=== PATIENT | female | born 1990 | race Caucasian/White ===

== ENCOUNTER 2016-10-28 11:31 | Emergency (ER) | payer OTHER ==
[2016-10-28 11:39] VITALS: TEMP 98.4
[2016-10-28] MEDS ORDERED: NS 1,000 ML IV ONE ×2 (11:56→12:39)
[2016-10-28] MEDS ORDERED: ONDANSETRON 4 MG/2 ML VIAL IVP ONE ×2 (11:59→13:36)
--- NOTE | 2016-10-28 12:25 | EDPHY ---
H & P Stated Complaint: hyperemisis preg 7 wks HPI/ROS: CHIEF COMPLAINT: Nausea and vomiting in HISTORY OF PRESENT ILLNESS: patient is approximately 7 weeks with 2 weeks of vomiting. She is with a last menstrual period of September 03, 2016. Her care is with [facility]. She did see the nurse hair weaver earlier today, who sent her here for IV fluid resuscitation. She has been vomiting solids and liquids over the past 2 weeks, worsening over the past 24-48 hours. Unable to keep any water down. No fevers or chills. No abdominal pain or pelvic pain. No vaginal bleeding or discharge. She was evaluated last week for a threatened miscarriage without any significant findings. No other associated complaints or modifying factors. REVIEW OF SYSTEMS: Ten systems reviewed and are negative unless otherwise noted in the HPI EXAMINATION General Appearance: Alert, no distress Head: normocephalic, atraumatic Eyes: Pupils equal and round, no conjunctival pallor or injection ENT, Mouth: Mucous membranes moist Neck: Normal inspection, supple, non-tender Respiratory: Lungs are clear to auscultation Cardiovascular: Regular rate and rhythm Gastrointestinal: Abdomen is soft and nontender . No rigidity. No tympany. Nonacute abdomen Back: non-tender, no bony abnormalities Neurological: A&O, nonfocal Skin: Warm and dry, no rash Extremities: Nontender, no pedal edema Psychiatric: Mood and affect normal DIFFERENTIAL DIAGNOSES: Including but not limited to hyperemesis gravidarum, nausea vomiting, dehydration, volume depletion MDM: nausea and vomiting in early without any pelvic pain or bleeding. She has no fever or chills. No respiratory complaints. No urinary complaints to speak of. We are providing IV fluid resuscitation will obtain laboratory studies including UA. 1:45 p.m. I have re-evaluated this patient. They remain hemodynamically stable and in no distress. No further complaints at this time. Labs are within normal limits. Mild demargination likely from the repeated vomiting. She is afebrile with no abdominal or pelvic pain. No active vomiting in the ER but she is still nauseated. We have provided 2 L IV fluid resuscitation and 4 mg Zofran. She requested 1 further Zofran, and we will give 25 mg of Phenergan IM and attempt a p.o. trial. 2:10 p.m. I have re-evaluated this patient. They remain hemodynamically stable and in no distress. No further complaints at this time. She is feeling better after 2 L IV fluid, 2 doses Zofran, and Phenergan. She would like to be discharged home. I do feel she is stable for this. She will be discharged home with Zofran at her request, and 2 forms of promethazine. She has an appointment on Wednesday with her OB physician that she will keep her return to the ER for return of her symptoms, inability intake by mouth over 12-24 hours, pelvic pain or vaginal bleeding. Discharged home in stable condition. SUPERVISION: Patient was evaluated in conjunction with the supervising physician. Please see their note for details. Source: Patient, Family Exam Limitations: No limitations - Personal History LMP (Females 10-55): Current Tetanus/Diphtheria Vaccine: Unsure Current Tetanus Diphtheria and Acellular Pertussis (TDAP): Unsure - Medical/Surgical History Hx Asthma: No Hx Chronic Respiratory Disease: No Hx Diabetes: No Hx Cardiac Disease: No Hx Renal Disease: No Hx Cirrhosis: No Hx Alcoholism: No Hx HIV/AIDS: No Hx Splenectomy or Spleen Trauma: No - Social History Smoking Status: Never smoked Constitutional: Initial Vital Signs Temperature (C) 98.4 F 10/28/16 11:37 Heart Rate 80 10/28/16 11:37 Respiratory Rate 16 10/28/16 11:37 Blood Pressure 108/66 10/28/16 11:37 O2 Sat (%) 98 10/28/16 11:37 O2 Delivery Mode Room Air Allergies/Adverse Reactions: hydromorphone HCl [From Dilaudid] Allergy (Verified 04/02/14 17:18) Anaphylaxis Home Medications: Medication Instructions Recorded Claritin 10 mg PO DAILY 04/02/14 1 tab PO DAILY 04/02/14 Probiotic 1 cap PO DAILY 04/02/14 Hydrocodone/APAP 5/325 [[place] 1 - 2 tab PO Q4 PRN #30 tab 04/06/14 5/325 (*)] Ibuprofen [Motrin (*)] 600 mg PO Q6 PRN #30 tab 04/06/14 Iron Polysacch/Iron Heme Polyp 28 mg PO DAILY #0 tab 04/06/14 [Bifera] Ondansetron Odt [Zofran Odt 4 mg 4 mg PO Q4 PRN #20 tab 04/06/14 (*)] Ondansetron Odt [Zofran Odt 4 mg 4 mg PO Q4 PRN #12 tab 10/28/16 (*)] Promethazine HCl 25 mg RC Q8 PRN #20 supp.rect 10/28/16 Promethazine HCl [Phenergan 25mg 25 mg PO Q8 PRN #20 tab 10/28/16 (*)] Medical Decision Making - Data Points Laboratory Results: Laboratory Results 10/28/16 11:45 10/28/16 11:45 10/28/16 11:45 WBC 11.76 H 10^3/uL (3.80-9.50) RBC 4.36 10^6/uL (4.18-5.33) Hgb 12.6 g/dL (12.6-16.3) Hct 36.7 L % (38.0-47.0) MCV 84.2 fL (81.5-99.8) MCH 28.9 pg (27.9-34.1) MCHC 34.3 g/dL (32.4-36.7) RDW 12.7 % (11.5-15.2) Plt Count 198 10^3/uL (150-400) MPV 10.6 fL (8.7-11.7) Neut % (Auto) 81.7 H % (39.3-74.2) Lymph % (Auto) 12.8 L % (15.0-45.0) [place] % (Auto) 4.8 % (4.5-13.0) Eos % (Auto) 0.1 L % (0.6-7.6) Baso % (Auto) 0.3 % (0.3-1.7) Nucleat RBC Rel Count 0.0 % (0.0-0.2) Absolute Neuts (auto) 9.62 H 10^3/uL (1.70-6.50) Absolute Lymphs (auto) 1.50 10^3/uL (1.00-3.00) Absolute Monos (auto) 0.56 10^3/uL (0.30-0.80) Absolute Eos (auto) 0.01 L 10^3/uL (0.03-0.40) Absolute Basos (auto) 0.03 10^3/uL (0.02-0.10) Absolute Nucleated RBC 0.00 10^3/uL (0-0.01) Immature Gran % 0.3 % (0.0-1.1) Immature Gran # 0.04 10^3/uL (0.00-0.10) Sodium 140 mEq/L (134-144) Potassium 3.9 mEq/L (3.5-5.2) Chloride 101 mEq/L (97-110) Carbon Dioxide 23 mEq/l (22-31) Anion Gap 16 mEq/L (8-16) BUN 9 mg/dL (7-23) Creatinine 0.6 mg/dL (0.6-1.0) Estimated GFR > 60 Glucose 103 H mg/dL (70-100) Calcium 9.5 mg/dL (8.5-10.4) Total Bilirubin 0.7 mg/dL (0.1-1.4) Conjugated Bilirubin 0.2 mg/dL (0.0-0.5) Unconjugated Bilirubin 0.5 mg/dL (0.0-1.1) AST 38 IU/L (14-46) ALT 115 H IU/L (9-52) Alkaline Phosphatase 62 IU/L (38-126) Total Protein 7.7 g/dL (6.3-8.2) Albumin 4.3 g/dL (3.5-5.0) Amylase 55 IU/L (30-110) Lipase 118.0 IU/L (23-300) Beta HCG, Quant 963571.00 H mIU/mL (0-4.83) Medications Given: Discontinued Medications Sodium Chloride (Ns) 1,000 mls @ 0 mls/hr IV ONCE ONE PRN Reason: Wide Open Stop: 10/28/16 11:57 Last Admin: 10/28/16 11:57 Dose: 1,000 mls Sodium Chloride (Ns) 1,000 mls @ 0 mls/hr IV ONCE ONE PRN Reason: Wide Open Stop: 10/28/16 12:40 Last Admin: 10/28/16 12:40 Dose: 1,000 mls Ondansetron HCl (Zofran) 4 mg IVP EDNOW ONE Stop: 10/28/16 12:00 Last Admin: 10/28/16 12:09 Dose: 4 mg Ondansetron HCl (Zofran) 4 mg IVP EDNOW ONE Stop: 10/28/16 13:37 Last Admin: 10/28/16 13:48 Dose: 4 mg Promethazine HCl (Phenergan Injection) 25 mg IM EDNOW ONE Stop: 10/28/16 13:45 Last Admin: 10/28/16 14:08 Dose: 25 mg Departure - Departure Disposition: Home, Routine, Self-Care Clinical Impression: Hyperemesis gravidarum Qualifiers: Qualifier Code: (Z3A.01) Less than 8 weeks gestation of Condition: Good Instructions: Nausea and Vomiting in (ED) Additional Instructions: Follow up with OB physician on her regularly scheduled appointment on Wednesday. Return to the ER for worsening nausea or vomiting, inability to keep anything down for 12-24 hours, any pelvic pain or vaginal bleeding. Referrals: NONE *PRIMARY CARE P,. [Primary Care Provider] - As per Instructions Anjelica Fowler MD [Medical Doctor] - As per Instructions Prescriptions: Promethazine HCl [Phenergan 25mg (*)] 25 mg PO Q8 PRN #20 tab PRN Reason: Nausea/Vomiting, Use 1st Promethazine HCl 25 mg RC Q8 PRN #20 supp.rect PRN Reason: Nausea/Vomiting, Use 2nd Ondansetron Odt [Zofran Odt 4 mg (*)] 4 mg PO Q4 PRN #12 tab PRN Reason: Nausea/Vomiting, Use 1st
[2016-10-28 12:30] LABS: % IMMATURE GRANULYOCYTES 0.3 % (0.0-1.1); ABSOLUTE IMMATURE GRANULOCYTES 0.04 10^3/uL (0.00-0.10); ADD DIFF? NO; ADD MORPH? NO; ADD SCAN? NO; ATYPICAL LYMPHOCYTE FLAG 0 (0-99); FRAGMENT RBC FLAG 0 (0-99); HEMATOCRIT 36.7 % (38.0-47.0); HEMOGLOBIN 12.6 g/dL (12.6-16.3); LEFT SHIFT FLG 0 (0-99); LIPEMIA HEMOLYSIS FLAG 90 (0-99); MEAN CELL HEMOGLOBIN 28.9 pg (27.9-34.1); MEAN CELL HEMOGLOBIN CONCENTR. 34.3 g/dL (32.4-36.7); MEAN CELL VOLUME 84.2 fL (81.5-99.8); MEAN PLATELET VOLUME 10.6 fL (8.7-11.7); PLATELET CLUMPS FLAG 0 (0-99); PLATELET COUNT 198 10^3/uL (150-400); RED BLOOD CELL COUNT 4.36 10^6/uL (4.18-5.33); RED CELL DISTRIBUTION WIDTH 12.7 % (11.5-15.2)
[2016-10-28 12:57] LABS: ALANINE AMINOTRANSFERASE 115 IU/L (9-52); ALBUMIN 4.3 g/dL (3.5-5.0); ALKALINE PHOSPHATASE 62 IU/L (38-126); AMYLASE 55 IU/L (30-110); ANION GAP 16 mEq/L (8-16); ASPARTATE AMINOTRANSFERASE 38 IU/L (14-46); BILIRUBIN,TOTAL 0.7 mg/dL (0.1-1.4); BILIRUBIN-CONJUGATED 0.2 mg/dL (0.0-0.5); BILIRUBIN-UNCONJUGATED 0.5 mg/dL (0.0-1.1); CALCIUM 9.5 mg/dL (8.5-10.4); CARBON DIOXIDE 23 mEq/l (22-31); CHLORIDE 101 mEq/L (97-110); CREATININE 0.6 mg/dL (0.6-1.0); GLOMERULAR FILTRATION RATE > 60; GLUCOSE 103 mg/dL (70-100); POTASSIUM 3.9 mEq/L (3.5-5.2); SODIUM 140 mEq/L (134-144); TOTAL PROTEIN 7.7 g/dL (6.3-8.2)
[2016-10-28] MEDS ORDERED: PROMETHAZINE HCL 25 MG/ML INJ IM ONE (13:44)
[2016-10-28 14:46] VITALS: BP 122/78; PULSE 80; RESP 14; O2SAT 94
== END 2016-10-28 14:45 | disposition home or self-care (01) ==
DX: O21.0 Mild hyperemesis gravidarum (principal); Z3A.01 Less than 8 weeks gestation of pregnancy
CPT/HCPCS: 96374; J2405; J2550

== ENCOUNTER 2016-10-30 10:50 | Observation (INO) | payer OTHER ==
[2016-10-30] MEDS ORDERED: NS 1,000 ML IV ONE ×2 (11:15→12:18)
[2016-10-30] MEDS ORDERED: PROMETHAZINE HCL 25 MG/ML INJ IVP ONE (11:28)
--- NOTE | 2016-10-30 12:18 | EDPHY ---
H & P Stated Complaint: hyperemesis /7 wks Time Seen by Provider: 10/30/16 12:14 HPI/ROS: CHIEF COMPLAINT: Nausea vomiting HISTORY OF PRESENT ILLNESS: 26-year-old female currently 7 weeks complaining of 2 and half weeks of vomiting. She was seen in the ER 2 days ago for same complaint, treated and released after IV hydration, Zofran and prescription for Phenergan. She returns to the ER noting that she has continued nausea, vomiting with concurrent anti emetic use. She notes mild epigastric discomfort which she feels is likely secondary to retching and vomiting. However no lower abdominal pain, no abdominal cramping, no vaginal bleeding or discharge. no fever no chills. No urinary complaints. Possible constipation. No melena or hematochezia. No back or flank pain. No myalgias no flu-like symptoms. PRIMARY OBGYN Corrie Salcedo REVIEW OF SYSTEMS: female A ten point review of systems was performed and is negative with the exception of the items mentioned in the HPI PAST MEDICAL & SURGICAL HISTORY: currently 7 weeks SOCIAL HISTORY: nonsmoker PHYSICAL EXAM (Prior to examination, patient consented to physical exam, hands were washed and my usual and customary physical exam procedures followed) 1) GENERAL: Well-developed, well-nourished, alert and oriented. Appears to be in no acute distress. 2) HEAD: Normocephalic, atraumatic 3) HEENT: Pupils equal, round, reactive to light bilaterally. Sclera anicteric. Nasopharynx, oropharynx, clear, no lesions. Dry mucous membranes 4) NECK: Full range of motion, no meningeal signs. 5) LUNGS: Clear auscultation bilaterally, no wheezes, no rhonchi, no retractions. 6) HEART: Regular rate and rhythm, no murmur, no heave, no gallop. 7) ABDOMEN: mild tenderness to palpation epigastrium only, no rebound, negative McBurney's, negative Dave's, negative Rovsing's, negative peritoneal sign, unable to elicit any lower abdominal pain 8) MUSCULOSKELETAL: Moving all extremities, no focal areas of tenderness, no obvious trauma. No peripheral edema or discoloration. 9) BACK: No CVA tenderness, no midline vertebral tenderness, no fluctuance, no step-off, no obvious trauma, no visual or palpable abnormality. 10) SKIN: No rash, no petechiae. DIFFERENTIAL DIAGNOSIS: in no particular include but limited to appendicitis, ectopic , acute cholecystitis, hyperemesis gravidarum - Personal History LMP (Females 10-55): Current Tetanus/Diphtheria Vaccine: Yes - Medical/Surgical History Hx Asthma: No Hx Chronic Respiratory Disease: No Hx Diabetes: No Hx Cardiac Disease: No Hx Renal Disease: No Hx Cirrhosis: No Hx Alcoholism: No Hx HIV/AIDS: No Hx Splenectomy or Spleen Trauma: No Other PMH: denies - Social History Smoking Status: Never smoked Constitutional: Initial Vital Signs Temperature (C) 36.7 C 10/30/16 11:01 Heart Rate 77 10/30/16 11:01 Respiratory Rate 22 H 10/30/16 11:01 Blood Pressure 115/67 10/30/16 11:01 O2 Sat (%) 99 10/30/16 11:01 O2 Delivery Mode Room Air Allergies/Adverse Reactions: hydromorphone HCl [From Dilaudid] Allergy (Verified 10/30/16 11:00) Anaphylaxis Home Medications: Medication Instructions Recorded 1 tab PO DAILY 04/02/14 Probiotic 1 cap PO DAILY 04/02/14 Ibuprofen [Motrin (*)] 600 mg PO Q6 PRN #30 tab 04/06/14 Iron Polysacch/Iron Heme Polyp 28 mg PO DAILY #0 tab 04/06/14 [Bifera] Ondansetron Odt [Zofran Odt 4 mg 4 mg PO Q4 PRN #20 tab 04/06/14 (*)] Ondansetron Odt [Zofran Odt 4 mg 4 mg PO Q4 PRN #12 tab 10/28/16 (*)] Promethazine HCl 25 mg RC Q8 PRN #20 supp.rect 10/28/16 Promethazine HCl [Phenergan 25mg 25 mg PO Q8 PRN #20 tab 10/28/16 (*)] Medical Decision Making ED Course/Re-evaluation: 12:45 p.m.: This patient has no complaints of abdominal pain or cramping. She has mild tenderness to palpation epigastrium only. No lower abdominal pain. No vaginal bleeding or discharge. Afebrile. I reviewed her old medical records. This patient has intractable nausea and vomiting. Think she would benefit from admission and hydration and antiemetic therapy. Discussed case Dr. Renzo Clark in ER. 12:50 p.m.: Phone consultation with PA with Dr. Corrie Salcedo the patient's OBGYN agrees to admit the patient to mom/Baby Floor. - Data Points Laboratory Results: Laboratory Results 10/30/16 11:15 10/30/16 11:15 WBC 9.37 10^3/uL (3.80-9.50) RBC 4.49 10^6/uL (4.18-5.33) Hgb 13.2 g/dL (12.6-16.3) Hct 38.9 % (38.0-47.0) MCV 86.6 fL (81.5-99.8) MCH 29.4 pg (27.9-34.1) MCHC 33.9 g/dL (32.4-36.7) RDW 12.9 % (11.5-15.2) Plt Count 220 10^3/uL (150-400) MPV 11.1 fL (8.7-11.7) Neut % (Auto) 79.7 H % (39.3-74.2) Lymph % (Auto) 15.6 % (15.0-45.0) [place] % (Auto) 3.7 L % (4.5-13.0) Eos % (Auto) 0.1 L % (0.6-7.6) Baso % (Auto) 0.4 % (0.3-1.7) Nucleat RBC Rel Count 0.0 % (0.0-0.2) Absolute Neuts (auto) 7.46 H 10^3/uL (1.70-6.50) Absolute Lymphs (auto) 1.46 10^3/uL (1.00-3.00) Absolute Monos (auto) 0.35 10^3/uL (0.30-0.80) Absolute Eos (auto) 0.01 L 10^3/uL (0.03-0.40) Absolute Basos (auto) 0.04 10^3/uL (0.02-0.10) Absolute Nucleated RBC 0.00 10^3/uL (0-0.01) Immature Gran % 0.5 % (0.0-1.1) Immature Gran # 0.05 10^3/uL (0.00-0.10) Sodium Pending Potassium Pending Chloride Pending Carbon Dioxide Pending Anion Gap Pending BUN Pending Creatinine Pending Estimated GFR Pending Glucose Pending Calcium Pending Total Bilirubin Pending Conjugated Bilirubin Pending Unconjugated Bilirubin Pending AST Pending ALT Pending Alkaline Phosphatase Pending Total Protein Pending Albumin Pending Lipase Pending Beta HCG, Quant Pending Medications Given: Discontinued Medications Sodium Chloride (Ns) 1,000 mls @ 0 mls/hr IV ONCE ONE PRN Reason: Wide Open Stop: 10/30/16 12:19 Last Admin: 10/30/16 12:19 Dose: 1,000 mls Sodium Chloride (Ns) 1,000 mls @ 0 mls/hr IV ONCE ONE PRN Reason: Wide Open Stop: 10/30/16 11:16 Last Admin: 10/30/16 12:22 Dose: 1,000 mls Promethazine HCl (Phenergan Injection) 12.5 mg IVP EDNOW ONE Stop: 10/30/16 11:29 Last Admin: 10/30/16 11:35 Dose: 12.5 mg Departure - Departure Disposition: [facility] Clinical Impression: Nausea and vomiting during , Hyperemesis gravidarum Condition: Fair Referrals: NONE *PRIMARY CARE P,. [Primary Care Provider] - As per Instructions
[2016-10-30 12:34] LABS: % IMMATURE GRANULYOCYTES 0.5 % (0.0-1.1); ABSOLUTE IMMATURE GRANULOCYTES 0.05 10^3/uL (0.00-0.10); ADD DIFF? NO; ADD MORPH? NO; ADD SCAN? NO; ATYPICAL LYMPHOCYTE FLAG 0 (0-99); FRAGMENT RBC FLAG 0 (0-99); HEMATOCRIT 38.9 % (38.0-47.0); HEMOGLOBIN 13.2 g/dL (12.6-16.3); LEFT SHIFT FLG 0 (0-99); LIPEMIA HEMOLYSIS FLAG 90 (0-99); MEAN CELL HEMOGLOBIN 29.4 pg (27.9-34.1); MEAN CELL HEMOGLOBIN CONCENTR. 33.9 g/dL (32.4-36.7); MEAN CELL VOLUME 86.6 fL (81.5-99.8); MEAN PLATELET VOLUME 11.1 fL (8.7-11.7); PLATELET CLUMPS FLAG 20 (0-99); PLATELET COUNT 220 10^3/uL (150-400); RED BLOOD CELL COUNT 4.49 10^6/uL (4.18-5.33); RED CELL DISTRIBUTION WIDTH 12.9 % (11.5-15.2)
[2016-10-30 12:52] LABS: ALANINE AMINOTRANSFERASE 105 IU/L (9-52); ALBUMIN 4.1 g/dL (3.5-5.0); ALKALINE PHOSPHATASE 65 IU/L (38-126); ANION GAP 13 mEq/L (8-16); ASPARTATE AMINOTRANSFERASE 33 IU/L (14-46); BILIRUBIN,TOTAL 0.5 mg/dL (0.1-1.4); BILIRUBIN-CONJUGATED 0.2 mg/dL (0.0-0.5); BILIRUBIN-UNCONJUGATED 0.3 mg/dL (0.0-1.1); CALCIUM 9.1 mg/dL (8.5-10.4); CARBON DIOXIDE 24 mEq/l (22-31); CHLORIDE 104 mEq/L (97-110); CREATININE 0.7 mg/dL (0.6-1.0); GLOMERULAR FILTRATION RATE > 60; GLUCOSE 87 mg/dL (70-100); POTASSIUM 3.8 mEq/L (3.5-5.2); SODIUM 141 mEq/L (134-144); TOTAL PROTEIN 7.4 g/dL (6.3-8.2)
[2016-10-30] MEDS ORDERED: ONDANSETRON 4 MG/2 ML VIAL IVP ONE (12:58)
[2016-10-30] MEDS ORDERED: PROMETHAZINE HCL 25 MG/ML INJ IVP PRN (13:05)
[2016-10-30] MEDS ORDERED: NS 1,000 ML IV SCH (13:15)
[2016-10-30 13:45] VITALS: RESP 16
--- NOTE | 2016-10-30 14:20 | US ---
Limited Abdominal Ultrasound INDICATION: Elevated liver enzymes. Right upper quadrant pain. TECHNIQUE: Limited right upper quadrant ultrasound is performed. FINDINGS: Patient is 7 weeks . Pancreas is sonographically normal. Abdominal aorta is normal in size without atherosclerosis or aneu rysm. It distally measures 1.5 cm. The liver measures 14.2 cm. It is homogeneous. Contour is normal. Portal vein and hepatic veins are p atent. IVC is patent. The gallbladder has a layer of debris. Gallbladder wall measures 1.5 mm. No pericholecystic fluid. So nographic Dave sign is negative. Common bile duct measures 2 mm. No intrahepatic ductal dilatation. No evidence for obvious stones. Right kidney measures 11.3 x 5.5 x 4.1 cm. No ascites or effusion. IMPRESSION: Sludge in the gallbladder. No sonographic evidence for cholecystitis. Otherwise normal [facility] right upper quadrant ultrasound.
[2016-10-30 15:11] LABS: COLOR YELLOW; LEUKOCYTE ESTERASE,URINE NEGATIVE (NEGATIVE); NITRITE,URINE NEGATIVE (NEGATIVE)
[2016-10-30 15:14] LABS: MUCUS TRACE /lpf (NONE-1+)
[2016-10-30 15:15] LABS: BACTERIA NONE SEEN /hpf (NONE SEEN)
[2016-10-30] MEDS ORDERED: FAMOTIDINE 20 MG/2 ML SDV IVP PRN (16:34)
--- NOTE | 2016-10-30 16:40 | PDGENHP ---
History and Physical - Chief Complaint 26 y.o. at 7 weeks with hyperemesis - History of Present Illness 26 y.o. at 7 weeks gestation with hyperemesis with intractable nausea/ vomiting. Patient recently found out she was and for the past 2 weeks has experienced worsening n/v. Has tried Diglecis, Reglan, Phenergan and Zofran with minimal relief. Patient was seen in OB clinic 10/28 and was sent to ER for IVF hydration and Zofran. Patient did get relief for 24 hours and then began experiencing intractable n/v last night and this morning. History Information - Allergies/Home Medication List Allergies/Adverse Reactions: hydromorphone HCl [From Dilaudid] Allergy (Verified 10/30/16 11:00) Anaphylaxis Home Medications: Aspirin [Aspirin 81mg (*)] 81 mg PO DAILY@1200 10/30/16 [Last Taken 10/28/16] Vit/Fe Fumarate/FA [ Tablet] 1 each PO DAILY@1200 10/30/16 [ Last Taken 10/28/16] Progesterone,Micronized [Endometrin] 1 herminia VG HS 10/30/16 [Last Taken 10/29/16] I have personally reviewed and updated: family history, medical history, social history, surgical history - Past Medical History no pertinent PMH - Surgical History Reports: no pertinent surgical hx - Social History Smoking Status: Never smoked Alcohol Use: None Drug Use: None Review of Systems ROS: 10pt was reviewed & negative except for what was stated in HPI & below Constitutional: Reports: malaise EENMT: Reports: no symptoms Cardiac: Reports: no symptoms Respiratory: Reports: no symptoms Gastrointestinal: Reports: vomitting, abdominal pain, nausea Genitourinary: Reports: no symptoms Muscolosketal: Reports: no symptoms Skin: Reports: no symptoms Neurological: Reports: no symptoms Hematologic/Lymphatic: Reports: no symptoms Immunologic/Allergy: Reports: no symptoms Physical Exam Temp Pulse Resp BP Pulse Ox 36.3 C 78 16 100/62 97 10/30/16 15:19 10/30/16 15:19 10/30/16 15:19 10/30/16 15:19 10/30/16 15:19 Constitutional: uncomfortable Eyes: PERRL Ears, Nose, Mouth, Throat: moist mucous membranes Cardiovascular: regular rate and rhythym, no murmur, rub, or gallop Respiratory: no respiratory distress, no rales or rhonchi, clear to auscultation Gastrointestinal: soft, non-tender abdomen Genitourinary: no bladder fullness Skin: warm, normal color Musculoskeletal: full muscle strength, no muscle tenderness Neurologic: AAOx3, sensation intact bilaterally Psychiatric: interacting appropriately Lymph, Heme, Immunologic: no cervical LAD Lab Data & Imaging Review 10/30/16 11:15 10/30/16 11:15 WBC 9.37 10^3/uL (3.80-9.50) 10/30/16 11:15 RBC 4.49 10^6/uL (4.18-5.33) 10/30/16 11:15 Hgb 13.2 g/dL (12.6-16.3) 10/30/16 11:15 Hct 38.9 % (38.0-47.0) 10/30/16 11:15 MCV 86.6 fL (81.5-99.8) 10/30/16 11:15 MCH 29.4 pg (27.9-34.1) 10/30/16 11:15 MCHC 33.9 g/dL (32.4-36.7) 10/30/16 11:15 RDW 12.9 % (11.5-15.2) 10/30/16 11:15 Plt Count 220 10^3/uL (150-400) 10/30/16 11:15 MPV 11.1 fL (8.7-11.7) 10/30/16 11:15 Neut % (Auto) 79.7 % (39.3-74.2) H 10/30/16 11:15 Lymph % (Auto) 15.6 % (15.0-45.0) 10/30/16 11:15 [place] % (Auto) 3.7 % (4.5-13.0) L 10/30/16 11:15 Eos % (Auto) 0.1 % (0.6-7.6) L 10/30/16 11:15 Baso % (Auto) 0.4 % (0.3-1.7) 10/30/16 11:15 Nucleat RBC Rel Count 0.0 % (0.0-0.2) 10/30/16 11:15 Absolute Neuts (auto) 7.46 10^3/uL (1.70-6.50) H 10/30/16 11:15 Absolute Lymphs (auto) 1.46 10^3/uL (1.00-3.00) 10/30/16 11:15 Absolute Monos (auto) 0.35 10^3/uL (0.30-0.80) 10/30/16 11:15 Absolute Eos (auto) 0.01 10^3/uL (0.03-0.40) L 10/30/16 11:15 Absolute Basos (auto) 0.04 10^3/uL (0.02-0.10) 10/30/16 11:15 Absolute Nucleated RBC 0.00 10^3/uL (0-0.01) 10/30/16 11:15 Immature Gran % 0.5 % (0.0-1.1) 10/30/16 11:15 Immature Gran # 0.05 10^3/uL (0.00-0.10) 10/30/16 11:15 Sodium 141 mEq/L (134-144) 10/30/16 11:15 Potassium 3.8 mEq/L (3.5-5.2) 10/30/16 11:15 Chloride 104 mEq/L (97-110) 10/30/16 11:15 Carbon Dioxide 24 mEq/l (22-31) 10/30/16 11:15 Anion Gap 13 mEq/L (8-16) 10/30/16 11:15 BUN 6 mg/dL (7-23) L 10/30/16 11:15 Creatinine 0.7 mg/dL (0.6-1.0) 10/30/16 11:15 Estimated GFR > 60 10/30/16 11:15 Glucose 87 mg/dL (70-100) 10/30/16 11:15 Calcium 9.1 mg/dL (8.5-10.4) 10/30/16 11:15 Total Bilirubin 0.5 mg/dL (0.1-1.4) 10/30/16 11:15 Conjugated Bilirubin 0.2 mg/dL (0.0-0.5) 10/30/16 11:15 Unconjugated Bilirubin 0.3 mg/dL (0.0-1.1) 10/30/16 11:15 AST 33 IU/L (14-46) 10/30/16 11:15 ALT 105 IU/L (9-52) H 10/30/16 11:15 Alkaline Phosphatase 65 IU/L (38-126) 10/30/16 11:15 Total Protein 7.4 g/dL (6.3-8.2) 10/30/16 11:15 Albumin 4.1 g/dL (3.5-5.0) 10/30/16 11:15 Lipase 112.0 IU/L (23-300) 10/30/16 11:15 Beta HCG, Quant 604957.00 mIU/mL (0-4.83) H 10/30/16 11:15 Urine Color YELLOW 10/30/16 15:00 Urine Appearance CLEAR 10/30/16 15:00 Urine pH 5.0 (5.0-7.5) 10/30/16 15:00 Ur Specific [place] 1.015 (1.002-1.030) 10/30/16 15:00 Urine Protein NEGATIVE (NEGATIVE) 10/30/16 15:00 Urine Ketones 2+ (NEGATIVE) H 10/30/16 15:00 Urine Blood NEGATIVE (NEGATIVE) 10/30/16 15:00 Urine Nitrate NEGATIVE (NEGATIVE) 10/30/16 15:00 Urine Bilirubin NEGATIVE (NEGATIVE) 10/30/16 15:00 Urine Urobilinogen NEGATIVE EU (0.2-1.0) 10/30/16 15:00 Ur Leukocyte Esterase NEGATIVE (NEGATIVE) 10/30/16 15:00 Urine RBC 1-3 /hpf (0-3) 10/30/16 15:00 Urine WBC 1-3 /hpf (0-3) 10/30/16 15:00 Ur Epithelial Cells TRACE /lpf (NONE-1+) 10/30/16 15:00 Urine Bacteria NONE SEEN /hpf (NONE SEEN) 10/30/16 15:00 Urine Mucus TRACE /lpf (NONE-1+) 10/30/16 15:00 Urine Glucose NEGATIVE (NEGATIVE) 10/30/16 15:00 Assessment & Plan Assessment: Hyperemesis gravidarum (Acute) Nausea and vomiting during (Acute) Plan: Admit to unit for 23 hour observation for intractable n/v. Orders written for antiemetic and IV therapy
[2016-10-30] MEDS ORDERED: FAMOTIDINE 20 MG/NACL 50 ML IV PRN (16:41)
--- NOTE | 2016-10-30 16:45 | SOAPPROG ---
SOAP Progress Note Assessment/Plan: Assessment: 26 y.o. female at approximately 7 weeks admitted for hyperemesis for 23 hr OBS. Plan: Admit patient to unit for hyperemesis. IVF started. Antiemetic therapy initiated. Will observe patient overnight and anticipate discharge tomorrow. 10/30/16 16:42 Subjective: Patient reports feeling very nauseated, fatigued with mild upper abdominal tenderness. Patient reports feeling better after being seen in ER on 10/28/16, but reports treatment only helped for 24 hours and then she began experiencing intractable n/v again. Patient feeling very fatigued. Discussed plan of care and treatment. present with patient. Objective: Vital Signs Temp Pulse Resp BP Pulse Ox 36.3 C 78 16 100/62 97 10/30/16 15:19 10/30/16 15:19 10/30/16 15:19 10/30/16 15:19 10/30/16 15:19 10/29/16 10/30/16 10/31/16 05:59 05:59 05:59 Intake Total 1999 Balance 1999 - Time Spent With Patient Time Spent With Patient: 20 minutes - Pending Discharge Pending Discharge Within 24 Hours: Yes Pending Discharge Date: 10/31/16 Pending Discharge Time: 11:00 Physical Exam - Physical Exam General Appearance: WD/WN, alert, mild distress EENT: normal ENT inspection Neck: non-tender, full range of motion Respiratory: lungs clear, normal breath sounds Cardiac/Chest: regular rate, rhythm Abdomen: non-tender, soft Pelvic Exam: deferred Rectal: deferred Back: Normal inspection Skin: normal color, warm/dry Lymphatic: no adenopathy Extremities: normal range of motion, non-tender, normal inspection Neuro/Psych: alert, normal mood/affect, oriented x 3 ICD10 Worksheet Patient Problems: Problems Problem Status Diagnosed Hyperemesis gravidarum Acute Nausea and vomiting during Acute Post-dates Acute - ICD10 Problem Qualifiers (1) Hyperemesis gravidarum (2) Nausea and vomiting during
[2016-10-30] MEDS: ONDANSETRON 4 MG/2 ML VIAL IVP PRN (16:57)
[2016-10-30] MEDS ORDERED: METOCLOPRAMIDE 10 MG/2 ML VIAL IVP PRN (18:29)
[2016-10-30] MEDS: PROMETHAZINE HCL 25 MG SUPPR PR PRN (18:56)
[2016-10-30] MEDS ORDERED: PROMETHAZINE HCL 25 MG/ML INJ IM PRN (21:13)
[2016-10-31 06:45] LABS: % IMMATURE GRANULYOCYTES 0.5 % (0.0-1.1); ABSOLUTE IMMATURE GRANULOCYTES 0.04 10^3/uL (0.00-0.10); ADD DIFF? NO; ADD MORPH? NO; ADD SCAN? NO; ATYPICAL LYMPHOCYTE FLAG 10 (0-99); FRAGMENT RBC FLAG 0 (0-99); HEMATOCRIT 30.4 % (38.0-47.0); HEMOGLOBIN 10.6 g/dL (12.6-16.3); LEFT SHIFT FLG 0 (0-99); LIPEMIA HEMOLYSIS FLAG 90 (0-99); MEAN CELL HEMOGLOBIN 29.6 pg (27.9-34.1); MEAN CELL HEMOGLOBIN CONCENTR. 34.9 g/dL (32.4-36.7); MEAN CELL VOLUME 84.9 fL (81.5-99.8); MEAN PLATELET VOLUME 10.9 fL (8.7-11.7); PLATELET CLUMPS FLAG 0 (0-99); PLATELET COUNT 164 10^3/uL (150-400); RED BLOOD CELL COUNT 3.58 10^6/uL (4.18-5.33)
[2016-10-31] MEDS: PROMETHAZINE HCL 25 MG SUPPR PR PRN ×3 (06:45→18:53)
[2016-10-31 06:48] LABS: ALANINE AMINOTRANSFERASE 70 IU/L (9-52); ALBUMIN 2.9 g/dL (3.5-5.0); ALKALINE PHOSPHATASE 50 IU/L (38-126); ANION GAP 10 mEq/L (8-16); ASPARTATE AMINOTRANSFERASE 18 IU/L (14-46); BILIRUBIN,TOTAL 0.4 mg/dL (0.1-1.4); CALCIUM 8.4 mg/dL (8.5-10.4); CARBON DIOXIDE 20 mEq/l (22-31); CHLORIDE 110 mEq/L (97-110); CREATININE 0.6 mg/dL (0.6-1.0); GLOMERULAR FILTRATION RATE > 60; GLUCOSE 78 mg/dL (70-100); POTASSIUM 3.8 mEq/L (3.5-5.2); SODIUM 140 mEq/L (134-144); TOTAL PROTEIN 5.7 g/dL (6.3-8.2)
--- NOTE | 2016-10-31 07:44 | OBPROG ---
OBG Progress Note Assessment/Plan: Assessment: Hospital day #1 IUP at 7 weeks gestation Hyperemesis Elevated AST improved level today Normal sodium and Potassium Plan: Continue management IVF Hepatitis panel pending TSH low at 0.181 Consult with internal medicine rec T3 and T 4 levels Will follow up on results. 10/31/16 07:35 10/31/16 07:37 10/31/16 07:58 Subjective: Patient states last emesis last night. Last bowel movement 4 days ago. States was able to tolerate crackers and juice and slept for the rest of the night. Discussed lab results and obtained phone consult with internal medicine who recommends T3and T4 level. Patient states her mother had a history of Thyroid CA and had treatment. Objective: 10/31/16 06:20 10/31/16 06:20 Total Bilirubin 0.4 mg/dL (0.1-1.4) 10/31/16 06:20 Conjugated Bilirubin 0.2 mg/dL (0.0-0.5) 10/30/16 11:15 Unconjugated Bilirubin 0.3 mg/dL (0.0-1.1) 10/30/16 11:15 AST 18 IU/L (14-46) 10/31/16 06:20 ALT 70 IU/L (9-52) H 10/31/16 06:20 Temp Pulse Resp BP Pulse Ox 36.9 C 72 16 106/68 97 10/31/16 06:00 10/31/16 06:00 10/31/16 06:00 10/31/16 06:00 10/31/16 06:00 Membranes: Intact - Physical Exam EENT: PERRL/EOMI Respiratory: chest non-tender, lungs clear, normal breath sounds Cardiac/Chest: normal peripheral pulses, regular rate, rhythm Abdomen: normal bowel sounds, non-tender, soft Extremities: normal range of motion, non-tender, normal inspection, normal capillary refill Back: Normal inspection Skin: normal color Neuro/Psych: no motor/sensory deficits, alert, normal mood/affect, oriented x 3 ICD10 Worksheet Patient Problems: Problems Problem Status Diagnosed Hyperemesis gravidarum Acute Nausea and vomiting during Acute Post-dates Acute
[2016-10-31] MEDS: ONDANSETRON 4 MG/2 ML VIAL IVP PRN (11:33)
[2016-10-31 11:47] VITALS: BP 108/73; PULSE 73; TEMP 98; O2SAT 99
[2016-10-31 12:26] LABS: T3 (TRIIODOTHYRONINE) TOTAL 1.32 ng/mL (0.970-1.690)
[2016-10-31] MEDS ORDERED: ONDANSETRON DISINTEGRATING 4 MG TAB PO PRN (13:39)
[2016-10-31] MEDS ORDERED: BISACODYL 10 MG SUPP PR ONE (17:00)
[2016-10-31] MEDS ORDERED: DOCUSATE SODIUM 100 MG CAP PO ONE (17:08)
--- NOTE | 2016-10-31 18:17 | OBGCSDC ---
General Delivery Information - General Info : 2 Para: 1 Admission Date: 10/30/16 Labs: Hct 30.4 % (38.0-47.0) L 10/31/16 06:20 TSH 0.181 T3 1.11 T4 3.08 Hep panel pending Vaginal - Hospital Course Antepartum: Patient was admitted for hyperemesis. Noted improvements. TSH low but normal T3 and T4. AST level trending down. Patient has not had emesis today and would like to go home. Hepatitis panel is still pending - Delivery IUP (Weeks): 7 weeks Discharge Information - Discharge Information Discharge Medications: Other (Specify) (Zofran and Phenergan) Condition: Good Instruction/Follow Up: Two Weeks Discharge Physician/CNM: Vane Jordan Discharge Date: 10/31/16 Dictated: No
[2016-10-31] MEDS ORDERED: DOCUSATE SODIUM 100 MG CAP PO SCH (21:00)
== END 2016-10-31 19:42 | disposition home or self-care (01) ==
LOC: FOB 13:39
PROVIDERS: ADMIT Obstetrics & Gynecology; ATTEND Obstetrics & Gynecology
DX: O21.0 Mild hyperemesis gravidarum (principal); Z3A.01 Less than 8 weeks gestation of pregnancy
CPT/HCPCS: 76705; 96361; 96374; 96375; 99285; G0378; 84480-90; 84481-90; J2405; J2550

== ENCOUNTER → 2017-01-21 | Outpatient (CLI) | payer OTHER | LOC: FIMAGING 13:08 | PROVIDERS: ATTEND Obstetrics & Gynecology | DX: Z34.82 Encounter for supervision of other normal pregnancy, second trimester (principal); Z3A.20 20 weeks gestation of pregnancy ==